=== PATIENT | female | born 1955 | race African-American/Black ===

== ENCOUNTER 2017-06-11 00:30 | Emergency (ER) | payer OTHER ==
[~2017-06-11] VITALS: Ht 157.5 cm; Wt 76.0 kg
[2017-06-11] MEDS ORDERED: MORPHINE SULFATE 4 MG/ML CPJ (NOT FOR IM USE) IV STA (01:15)
[2017-06-11] MEDS ORDERED: ONDANSETRON HCL 4MG/2ML VIAL IV STA ×2 (01:15→04:00)
[2017-06-11] MEDS ORDERED: SODIUM CHLORIDE 0.9% 1,000 ML IV ONE (01:15)
[2017-06-11] MEDS ORDERED: FAMOTIDINE 20MG/2ML VIAL IV STA (01:15)
[2017-06-11 01:36] LABS: BASOPHILS % 1.2 % (0.0-2.0); EOSINOPHILS % 0.7 % (0.0-5.0); HEMATOCRIT. 37.1 % (36.0-48.0); HEMOGLOBIN. 12.9 g/dL (12.0-16.0); LYMPHOCYTES % 36.2 % (20.0-50.0); MEAN CORPUSCULAR HEMOGLOBIN 30.3 pg (28.0-32.0); MEAN CORPUSCULAR VOLUME 87.1 fL (81.0-99.0); MEAN PLATELET VOLUME 7.2 fl (7.4-10.4); MONOCYTES % 8.8 % (2.0-8.0); NEUTROPHILS % 53.1 % (40.0-76.0); PLATELET 273 x1000/uL (130-400); RED BLOOD CELL COUNT 4.26 mill/uL (4.2-5.4); RED CELL DISTRIBUTION WIDTH 13.9 % (11.6-14.6)
[2017-06-11 01:51] LABS: CARBON DIOXIDE 30 mEq/L (21-32); CHLORIDE 100 mEq/L (98-107); ETHANOL BLOOD < 10 mg/dL; TROPONIN I < 0.02 ng/mL (0.00-0.04)
[2017-06-11 02:07] LABS: CLARITY URINE CLOUDY (CLEAR); COLOR URINE YELLOW (YELLOW); GLUCOSE URINE NEGATIVE (NEGATIVE); KETONES URINE TRACE (NEGATIVE); LEUKOCYTE ESTERASE URINE 3+ (NEGATIVE); NITRITE URINE NEGATIVE (NEGATIVE); OCCULT BLOOD URINE NEGATIVE (NEGATIVE); PH URINE 6.5 (4.5-8.0); PROTEIN URINE TRACE (NEGATIVE); SPECIFIC GRAVITY URINE 1.016 (1.005-1.030)
[2017-06-11 02:17] LABS: *AMPHETAMINES SCREEN URINE NEGATIVE (NEGATIVE); *BARBITURATES SCREEN URINE NEGATIVE (NEGATIVE); *BENZODIAZEPINES SCREEN URINE NEGATIVE (NEGATIVE); *COCAINE SCREEN URINE NEGATIVE (NEGATIVE); CANNABINOID URINE SCREEN NEGATIVE (NEGATIVE); METHADONE URINE SCREEN NEGATIVE (NEGATIVE); OPIATES URINE SCREEN PRESUMTIVE POSITIVE (NEGATIVE); PHENCYCLIDINE URINE SCREEN NEGATIVE (NEGATIVE)
[2017-06-11] MEDS ORDERED: PANTOPRAZOLE SODIUM 40 MG/VIAL IV NR (03:00)
[2017-06-11] MEDS ORDERED: MAGNESIUM/ALUMINUM HYDROXIDE/SIMETHICONE 30ML UDC PO NR (03:00)
[2017-06-11] MEDS ORDERED: VISCOUS LIDOCAINE 2% 15 ML UDC PO NR (03:00)
[2017-06-11] MEDS ORDERED: DICYCLOMINE 10 MG/5 ML ORAL SYR PO NR (03:00)
[2017-06-11] MEDS ORDERED: POTASSIUM BICARB/CIT ACID 25 MEQ TABLET.EFF PO NR (03:00)
[2017-06-11] MEDS ORDERED: LEVOFLOXACIN 750MG PREMIX 150 ML IV NR (03:45)
[2017-06-11 05:34] VITALS: BP 152/79
== END 2017-06-11 05:37 | disposition home or self-care (01) ==
LOC: ER 00:30
DX: K21.9 Gastro-esophageal reflux disease without esophagitis (principal); E87.6 Hypokalemia; N39.0 Urinary tract infection, site not specified; E05.90 Thyrotoxicosis, unspecified without thyrotoxic crisis or storm; I10 Essential (primary) hypertension; Z88.0 Allergy status to penicillin; Z88.2 Allergy status to sulfonamides; Z98.890 Other specified postprocedural states
CPT/HCPCS: 36415; 71010; 74176; 80053; 80305; 81001; 83690; 83880; 84484; 85025; 87086; 96361; 96365; 96375; 99285; C9113; G0482; J1956; J2270; J2405; J3490; J7030; Z7610

== ENCOUNTER 2017-06-12 20:52 | Emergency (ER) | payer OTHER ==
[~2017-06-12] VITALS: Ht 157.5 cm; Wt 75.0 kg
[2017-06-12] MEDS ORDERED: ONDANSETRON HCL 4MG/2ML VIAL IV STA (22:38)
[2017-06-12] MEDS ORDERED: KETOROLAC 30MG/ML VIAL IV STA (22:38)
[2017-06-12] MEDS ORDERED: SODIUM CHLORIDE 0.9% 1,000 ML IV ONE (22:38)
[2017-06-12] MEDS ORDERED: MAGNESIUM/ALUMINUM HYDROXIDE/SIMETHICONE 30ML UDC PO STA (22:38)
[2017-06-12 23:09] LABS: BASOPHILS % 0.5 % (0.0-2.0); EOSINOPHILS % 0.2 % (0.0-5.0); HEMATOCRIT. 38.7 % (36.0-48.0); HEMOGLOBIN. 13.4 g/dL (12.0-16.0); LYMPHOCYTES % 12.6 % (20.0-50.0); MEAN CORPUSCULAR HEMOGLOBIN 30.4 pg (28.0-32.0); MEAN CORPUSCULAR VOLUME 87.9 fL (81.0-99.0); MEAN PLATELET VOLUME 7.1 fl (7.4-10.4); MONOCYTES % 5.9 % (2.0-8.0); NEUTROPHILS % 80.8 % (40.0-76.0); PLATELET 296 x1000/uL (130-400); RED CELL DISTRIBUTION WIDTH 13.7 % (11.6-14.6)
[2017-06-12 23:13] LABS: CHLORIDE 101 mEq/L (98-107)
[2017-06-12 23:17] LABS: CARBON DIOXIDE 29 mEq/L (21-32)
[2017-06-12] MEDS ORDERED: POTASSIUM CHLORIDE 20MEQ TABLET SR PO ONE (23:45)
[2017-06-13] MEDS ORDERED: MORPHINE SULFATE 4 MG/ML CPJ (NOT FOR IM USE) IV ONE (00:30)
[2017-06-13 02:13] VITALS: BP 129/67
== END 2017-06-13 02:20 | disposition home or self-care (01) ==
LOC: ER 21:55
DX: K21.9 Gastro-esophageal reflux disease without esophagitis (principal); I10 Essential (primary) hypertension; E03.9 Hypothyroidism, unspecified; R11.2 Nausea with vomiting, unspecified; E05.90 Thyrotoxicosis, unspecified without thyrotoxic crisis or storm; Z88.0 Allergy status to penicillin; Z88.2 Allergy status to sulfonamides
CPT/HCPCS: 36415; 80053; 83690; 85025; 96361; 96374; 96375; 99284; J1885; J2270; J2405; J7030; Z7610

== ENCOUNTER 2022-11-12 17:17 | Emergency (ER) | payer BC, OTHER ==
[~2022-11-12] VITALS: Ht 157.5 cm; Wt 75.0 kg
[2022-11-12 17:45] VITALS: BP 165/60
[2022-11-12] MEDS ORDERED: NAPR-681 MT (21:10)
[2022-11-12] MEDS ORDERED: CLIN-194 MT (21:10)
[2022-11-12] MEDS ORDERED: DIF15 MT (21:30)
== END 2022-11-12 21:43 | disposition home or self-care (01) ==
LOC: ER 17:17
DX: I88.9 Nonspecific lymphadenitis, unspecified (principal); I10 Essential (primary) hypertension; Z88.0 Allergy status to penicillin; Z86.39 Personal history of other endocrine, nutritional and metabolic disease
CPT/HCPCS: 99281

== ENCOUNTER 2023-09-20 15:47 | Emergency (ER) | payer BC, OTHER ==
[~2023-09-20] VITALS: Ht 152.4 cm; Wt 65.0 kg
[~2023-09-20 15:47] MED LIST: CLIN-194 MT; DIF15 MT; NAPR-681 MT
[2023-09-20 15:50] VITALS: O2SAT 98
[2023-09-20] MEDS ORDERED: HYDROCODONE/ACETAMINOPHEN 5/325MG TABLET PO ONE (16:15)
[2023-09-20] MEDS ORDERED: IBUPROFEN 400MG TABLET PO ONE (16:15)
[2023-09-20] MEDS ORDERED: CLONIDINE 0.1MG TABLET PO NR (16:30)
[2023-09-20] MEDS ORDERED: CLONIDINE 0.2MG TABLET PO ONE (16:30)
[2023-09-20] MEDS: HYDROCODONE/ACETAMINOPHEN 5/325MG TABLET PO NR (18:00)
[2023-09-20] MEDS: IBUPROFEN 400MG TABLET PO NR (18:00)
[2023-09-20 18:40] VITALS: BP 169/86; PULSE 82; RESP 20; TEMP 98
[2023-09-20] MEDS ORDERED: IBUP-2028 MT (18:43)
== END 2023-09-20 19:10 | disposition home or self-care (01) ==
LOC: ER 15:47
DX: S63.501A Unspecified sprain of right wrist, initial encounter (principal); S83.91XA Sprain of unspecified site of right knee, initial encounter; M25.511 Pain in right shoulder; I10 Essential (primary) hypertension; Z88.0 Allergy status to penicillin; Z88.2 Allergy status to sulfonamides; Z85.3 Personal history of malignant neoplasm of breast; Z86.39 Personal history of other endocrine, nutritional and metabolic disease; Z98.890 Other specified postprocedural states; W18.30XA Fall on same level, unspecified, initial encounter; Y93.89 Activity, other specified; Y92.89 Other specified places as the place of occurrence of the external cause; Y99.8 Other external cause status
CPT/HCPCS: 29125; 72192; 73030; 73110; 73130; 73560; 99284